=== PATIENT | female | born 1970 | race Two or more races ===

== ENCOUNTER 2018-10-23 14:58 | Emergency (ER) | payer SELFPAY ==
[~2018-10-23] VITALS: Ht 162.6 cm; Wt 90.7 kg
[2018-10-23] MEDS ORDERED: LEVO125T8 PO (15:11)
[2018-10-23] MEDS ORDERED: AMOXicillin 250 MG CAPSULE PO ONE (15:30)
[2018-10-23] MEDS ORDERED: DEXAMETHASONE 4 MG TABLET PO ONE (15:30)
[2018-10-23] MEDS ORDERED: DEXAMETHASONE 4 MG TABLET ONE (15:39)
[2018-10-23] MEDS ORDERED: AMOXicillin 250 MG CAPSULE ONE (15:39)
--- NOTE | 2018-10-23 15:39 | NUR ---
Patient discharged to home in stable conditon. Written and verbal after care instructions given. Patient verbalizes understanding of instructions.
== END 2018-10-23 15:41 | disposition home or self-care (01) ==
LOC: ER 14:58
DX: J02.9 Acute pharyngitis, unspecified (principal); F17.290 Nicotine dependence, other tobacco product, uncomplicated; Z79.899 Other long term (current) drug therapy
CPT/HCPCS: 99283; 99406; J8540; A4663

== ENCOUNTER 2018-11-13 15:22 | Emergency (ER) | payer SELFPAY ==
[~2018-11-13] VITALS: Ht 162.6 cm; Wt 90.7 kg
[~2018-11-13 15:22] MED LIST: LEVO125T8 PO
[2018-11-13 15:57] LABS: BASOPHILS # (AUTO) 0.1 K/uL (0.0-8.0); BASOPHILS % (AUTO) 1.3 % (0.0-2.0); EOSINOPHILS # (AUTO) 0.3 K/uL (0.0-0.7); EOSINOPHILS % (AUTO) 4.3 % (0.0-7.0); HEMATOCRIT 37.5 % (31.2-41.9); HEMOGLOBIN 12.7 g/dL (10.9-14.3); LYMPHOCYTES # (AUTO) 2.3 K/uL (20.0-40.0); LYMPHOCYTES % (AUTO) 31.1 % (20.5-51.5); MEAN CORPUSCULAR HEMOGLOBIN 29.2 uug (24.7-32.8); MEAN CORPUSCULAR HGB CONC 34 g/dL (32.3-35.6); MEAN CORPUSCULAR VOLUME 85.9 fL (75.5-95.3); MONOCYTES # (AUTO) 0.5 K/uL (2.0-10.0); MONOCYTES % (AUTO) 6.2 % (0.0-11.0); NEUTROPHILS # (AUTO) 4.3 K/uL (1.8-8.9); NEUTROPHILS % (AUTO) 57.1 % (38.5-71.5); PLATELET COUNT (AUTO) 406 K/uL (179-408); RED BLOOD CELL COUNT(AUTO) 4.36 MIL/uL (3.63-4.92); WHITE BLOOD COUNT (AUTO) 7.5 K/uL (3.8-11.8)
[2018-11-13 16:02] LABS: CREATININE 0.7 mg/dL (0.6-1.3); POTASSIUM 4.1 mmol/L (3.5-5.1)
--- NOTE | 2018-11-13 16:02 | NUR ---
Pt out of ER for CT.
[2018-11-13 16:07] LABS: BILIRUBIN,DIRECT 0.1 mg/dL (0.0-0.2); BILIRUBIN,TOTAL 0.3 mg/dL (0.2-1.0)
--- NOTE | 2018-11-13 16:15 | NUR ---
Pt back from Ct, resting in bed.
--- NOTE | 2018-11-13 16:59 | NUR ---
Patient discharged to home in stable conditon. Written and verbal after care instructions given. Patient verbalizes understanding of instructions.
[2018-11-13 17:00] VITALS: BP 112/60
== END 2018-11-13 17:02 | disposition home or self-care (01) ==
LOC: ER 15:24
DX: R42 Dizziness and giddiness (principal); R51 Headache; F17.200 Nicotine dependence, unspecified, uncomplicated; Z79.899 Other long term (current) drug therapy
CPT/HCPCS: 36415; 70030-TC; 70450; 85025; 93005; A4663

== ENCOUNTER 2019-03-15 12:37 | Emergency (ER) | payer SELFPAY ==
[~2019-03-15] VITALS: Ht 162.6 cm; Wt 99.8 kg
--- NOTE | 2019-03-15 12:50 | NUR ---
Dr Morrissey at the bedside for MSE.
[2019-03-15 13:03] LABS: *BILIRUBIN,URIN NEGATIVE (NEGATIVE); *CLARITY,URINE CLEAR (CLEAR); *COLOR,URINE YELLOW (YELLOW); *KETONES,URINE NEGATIVE (NEGATIVE); *UROBILINOGEN,URINE 0.2 E.U./dl (NORMAL); LEUKOCYTE ESTERASE ,URINE NEGATIVE (NEGATIVE); NITRITE, URINE NEGATIVE (NEGATIVE); PH,URINE 5.5 (5.0-8.0); UGLUCOSE NEGATIVE (NEGATIVE)
[2019-03-15 13:05] LABS: *BLOOD, URINE NEGATIVE (NEGATIVE)
[2019-03-15 13:07] LABS: *URINE HCG, QUAL NEGATIVE (NEGATIVE)
[2019-03-15] MEDS ORDERED: HYDROCODONE/APAP 10-325 MG TABLET ONE (13:14)
[2019-03-15] MEDS ORDERED: KETOROLAC TROMETHAMINE 30 MG INJ ONE (13:14)
[2019-03-15] MEDS ORDERED: KETOROLAC TROMETHAMINE 30 MG INJ IM ONE (13:15)
[2019-03-15] MEDS ORDERED: HYDROCODONE/APAP 10-325 MG TABLET PO ONE (13:15)
--- NOTE | 2019-03-15 13:41 | NUR ---
Patient discharged to home in stable conditon. Written and verbal after care instructions given. Patient verbalizes understanding of instructions. Pt walked out of ER w/ steady gait.
[2019-03-15 13:42] VITALS: BP 110/60
== END 2019-03-15 13:45 | disposition home or self-care (01) ==
LOC: ER 12:37
DX: S39.012A Strain of muscle, fascia and tendon of lower back, initial encounter (principal); F17.200 Nicotine dependence, unspecified, uncomplicated; F41.9 Anxiety disorder, unspecified; Z79.899 Other long term (current) drug therapy; X58.XXXA Exposure to other specified factors, initial encounter; Y93.89 Activity, other specified; Y92.89 Other specified places as the place of occurrence of the external cause; Y99.8 Other external cause status
CPT/HCPCS: 81001; 84703; 96372; 99283; J1885; A4663

== ENCOUNTER 2019-06-03 19:10 | Inpatient (IN) | payer MEDICAID ==
[~2019-06-03] VITALS: Ht 162.6 cm; Wt 98.9 kg
[2019-06-03 19:53] LABS: BASOPHILS # (AUTO) 0.1 K/uL (0.0-8.0); BASOPHILS % (AUTO) 0.9 % (0.0-2.0); EOSINOPHILS # (AUTO) 0.4 K/uL (0.0-0.7); EOSINOPHILS % (AUTO) 4.3 % (0.0-7.0); HEMATOCRIT 36.8 % (31.2-41.9); HEMOGLOBIN 12.6 g/dL (10.9-14.3); LYMPHOCYTES # (AUTO) 2.9 K/uL (20.0-40.0); LYMPHOCYTES % (AUTO) 34.3 % (20.5-51.5); MEAN CORPUSCULAR HEMOGLOBIN 29.6 uug (24.7-32.8); MEAN CORPUSCULAR HGB CONC 34 g/dL (32.3-35.6); MEAN CORPUSCULAR VOLUME 86.6 fL (75.5-95.3); MONOCYTES # (AUTO) 0.6 K/uL (2.0-10.0); MONOCYTES % (AUTO) 7.5 % (0.0-11.0); NEUTROPHILS # (AUTO) 4.5 K/uL (1.8-8.9); PLATELET COUNT (AUTO) 419 K/uL (179-408); RED BLOOD CELL COUNT(AUTO) 4.25 MIL/uL (3.63-4.92); WHITE BLOOD COUNT (AUTO) 8.4 K/uL (3.8-11.8)
[2019-06-03 19:56] LABS: CREATININE 0.7 mg/dL (0.6-1.3); POTASSIUM 3.7 mmol/L (3.5-5.1)
[2019-06-03] MEDS ORDERED: ASPIRIN 325 MG TABLET PO ONE (20:00)
[2019-06-03] MEDS ORDERED: FENTANYL CITRATE 100 MCG/2 ML AMPUL IV ONE (20:00)
[2019-06-03] MEDS ORDERED: ASPIRIN 325 MG TABLET ONE (20:06)
[2019-06-03] MEDS ORDERED: FENTANYL CITRATE 100 MCG/2 ML AMPUL ONE (20:06)
[2019-06-03 20:09] LABS: BILIRUBIN,DIRECT 0.1 mg/dL (0.0-0.2); BILIRUBIN,TOTAL 0.2 mg/dL (0.2-1.0); TOTAL PROTEIN, SERUM 7.7 g/dL (6.4-8.2)
[2019-06-03] MEDS ORDERED: IPRATROPIUM BROMIDE 0.5 MG/2.5 ML NEBU NEB ONE (20:30)
[2019-06-03] MEDS ORDERED: ALBUTEROL SULFATE 2.5 MG/3 ML NEBU NEB ONE (20:30)
[2019-06-03] MEDS ORDERED: MAGNESIUM HYDROXIDE 30 ML LIQUID UDC PO PRN (21:45)
[2019-06-03] MEDS ORDERED: IPRATROPIUM BROMIDE 0.5 MG/2.5 ML NEBU NEB PRN (21:45)
[2019-06-03] MEDS ORDERED: ACETAMINOPHEN 325 MG TABLET PO PRN (21:45)
[2019-06-03] MEDS ORDERED: ONDANSETRON 4 MG/2 ML VIAL IV PRN (21:45)
[2019-06-03] MEDS ORDERED: Z GUARD REMEDY PASTE 57 GM TUBE TOP PRN (21:45)
[2019-06-03] MEDS ORDERED: HYDROCODONE/APAP 5-325MG TABLET PO PRN (21:45)
[2019-06-03] MEDS ORDERED: ALBUTEROL SULFATE 1.25 MG/3 ML NEBU NEB PRN (21:45)
[2019-06-03 22:53] VITALS: BP 132/67
[2019-06-04] VITALS: BP 104/54
[2019-06-04] MEDS: MAG HYDROX/AL HYDROX/SIMETH 30 ML LIQUID UDC PO PRN ×2 (01:53→10:03)
[2019-06-04 04:00] VITALS: BP 112/62
[2019-06-04 06:29] LABS: CREATININE 0.6 mg/dL (0.6-1.3); MAGNESIUM 2.1 mg/dL (1.8-2.4); PHOSPHOROUS 3.7 mg/dL (2.5-4.9)
[2019-06-04 06:45] LABS: BASOPHILS # (AUTO) 0.1 K/uL (0.0-8.0); BASOPHILS % (AUTO) 0.7 % (0.0-2.0); EOSINOPHILS # (AUTO) 0.4 K/uL (0.0-0.7); EOSINOPHILS % (AUTO) 4.7 % (0.0-7.0); HEMATOCRIT 36.8 % (31.2-41.9); HEMOGLOBIN 12.2 g/dL (10.9-14.3); LYMPHOCYTES # (AUTO) 2.8 K/uL (20.0-40.0); LYMPHOCYTES % (AUTO) 34.7 % (20.5-51.5); MEAN CORPUSCULAR HEMOGLOBIN 28.8 uug (24.7-32.8); MEAN CORPUSCULAR HGB CONC 33 g/dL (32.3-35.6); MEAN CORPUSCULAR VOLUME 87.4 fL (75.5-95.3); MONOCYTES # (AUTO) 0.8 K/uL (2.0-10.0); MONOCYTES % (AUTO) 9.8 % (0.0-11.0); NEUTROPHILS % (AUTO) 50.1 % (38.5-71.5); PLATELET COUNT (AUTO) 376 K/uL (179-408); RED BLOOD CELL COUNT(AUTO) 4.21 MIL/uL (3.63-4.92)
[2019-06-04] MEDS ORDERED: ASPIRIN 81 MG TAB.CHEW PO SCH (09:00)
[2019-06-04 11:58] VITALS: BP 92/53
[2019-06-04] MEDS ORDERED: ATORVASTATIN 20 MG TABLET PO SCH (21:00)
== END 2019-06-04 14:10 | disposition home or self-care (01) | DRG 145 ==
LOC: ER 19:15 → TELE3 21:56 → MEDSURG3 06-04 13:20
PROVIDERS: ADMIT Nurse Practitioner Acute Care; ATTEND Nurse Practitioner Acute Care
DX: J20.9 Acute bronchitis, unspecified (principal); J96.01 Acute respiratory failure with hypoxia; M94.0 Chondrocostal junction syndrome [Tietze]; J44.0 Chronic obstructive pulmonary disease with (acute) lower respiratory infection; E03.9 Hypothyroidism, unspecified; F17.210 Nicotine dependence, cigarettes, uncomplicated; R07.9 Chest pain, unspecified; F41.9 Anxiety disorder, unspecified; E78.5 Hyperlipidemia, unspecified; I25.10 Atherosclerotic heart disease of native coronary artery without angina pectoris; D68.59 Other primary thrombophilia; E66.9 Obesity, unspecified
CPT/HCPCS: 36415; 70030-TC; 71045; 83735; 84100; 85025; 93005; A4663; G0378; J3010; J3590